=== PATIENT | female | born 2000 | race Caucasian/White ===

== ENCOUNTER 2021-03-07 05:10 | Emergency (ER) | payer BC ==
[2021-03-07 05:47] VITALS: O2SAT 100
[2021-03-07] MEDS ORDERED: TETRACAINE 0.5% STERI-UNIT SOL OP ONE (05:59)
[2021-03-07] MEDS ORDERED: Eye-Stream Solution ONE (06:00)
[2021-03-07] MEDS ORDERED: Fluor-I-Strip/Ful-Flo OP ONE (06:00)
[2021-03-07] MEDS ORDERED: Tobrex EYE DROPS 5 ML OP ONE (06:21)
[2021-03-07] MEDS ORDERED: NORCO 5/325 MG ONE ×2 (06:21→07:07)
[2021-03-07] MEDS ORDERED: Cyclogyl 1% EYE DROPS OP ONE (06:21)
[2021-03-07] MEDS: NORCO 5/325 MG PO ONE ×2 (06:25→07:11)
[2021-03-07] MEDS: Tobrex EYE DROPS 5 ML OP ONE (06:25)
--- NOTE | 2021-03-07 06:29 | ERPHSYRPT ---
- History of Present Illness Time Seen by Provider: 03/07/21 06:17 Source: patient Exam Limitations: no limitations Patient Subjective Stated Complaint: pt states she started having rt eye irritation and itching last night while she had her contacts in. started having pain in her eye immmed after taking contact out. Triage Nursing Assessment: pt alert and oriented, answers questions approp. pt ambulatory with steady gait noted, respirations nonlabored with lungs cta. redness to rt eye with mild swelling of eyelid noted. tearing noted from rt eye. no other discharge noted. Physician History: Patient is a 20-year-old female who presents with a complaint of right eye pain which started last evening when she removed her contact lens it is painful. She denies any foreign body sensation only pain and photophobia Timing/Duration: hour(s) (12) Location: right eye Severity: moderate Apparent Injury: no Associated Symptoms: pain, burning, sensitivity to light, redness, decreased vision, blurred vision Visual Assistive Devices: Contacts Chemical Exposure: No Trauma: No Welding Arc/Tanning Bed Exposure: No Allergies/Adverse Reactions: No Known Drug Allergies Allergy (Verified 03/07/21 05:48) Home Medications: Desogestrel-Ethinyl Estradiol [Apri 28 Day Tablet] 1 each PO DAILY 03/07/21 [History] Hx Tetanus, Diphtheria Vaccination/Date Given: Yes Hx Influenza Vaccination/Date Given: No Hx Pneumococcal Vaccination/Date Given: No Immunizations Up to Date: Yes Travel Risk - International Travel Have you traveled outside of the country in past 3 weeks: No - Coronavirus Screening Are you exhibiting any of the following symptoms?: No - Vaccine Status Have you recieved a Covid-19 vaccination: Yes Dye Weigher: [place] - Vaccination Dates Date of 2cond Vaccination (if applicable): na - Review of Systems Constitutional: No Fever, No Chills Eyes: Eye Pain, Eye Redness, Photophobia, Tearing Ears, Nose, & Throat: No Symptoms Respiratory: No Cough, No Dyspnea Cardiac: No Chest Pain, No Edema, No Syncope Abdominal/Gastrointestinal: No Abdominal Pain, No Nausea, No Vomiting, No Diarrhea Genitourinary Symptoms: No Dysuria Musculoskeletal: No Back Pain, No Neck Pain Skin: No Rash Neurological: No Dizziness, No Focal Weakness, No Sensory Changes Psychological: No Symptoms Endocrine: No Symptoms All Other Systems: Reviewed and Negative - Past Medical History Pertinent Past Medical History: Yes Neurological History: Migraines ENT History: No Pertinent History Cardiac History: No Pertinent History Respiratory History: No Pertinent History Endocrine Medical History: No Pertinent History Musculoskeletal History: No Pertinent History GI Medical History: No Pertinent History History: No Pertinent History Psycho-Social History: No Pertinent History Female Reproductive Disorders: No Pertinent History Other Medical History: E-COLI IN [place] AT AGE 8. - Past Surgical History Past Surgical History: No - Social History Smoking Status: Never smoker Exposure to second hand smoke: No Drug Use: none Patient Lives Alone: No - Female History Hx Last Menstrual Period: 2 weeks Hx Now: Yes - Nursing Vital Signs Nursing Vital Signs: Initial Vital Signs Temperature 97.9 F 03/07/21 05:33 Pulse Rate 85 03/07/21 05:33 Respiratory Rate 18 03/07/21 05:33 Blood Pressure 134/87 03/07/21 05:33 O2 Sat by Pulse Oximetry 100 03/07/21 05:33 Pain Scale Pain Intensity 6 - Physical Exam General Appearance: moderate distress Vision Acuity Degree Evaluation Phase: Corrected Vision Acuity Right Eye: 20/30 Vision Acuity Left Eye: 20/20 Eye Exam: right eye: conjunctival inflammation, corneal abrasion, eyelid inflammation, left eye: normal inspection Ears, Nose, Throat Exam: normal ENT inspection Neck Exam: normal inspection, non-tender Neurologic: alert, oriented x 3, cooperative Skin Exam: normal color, warm, dry Lymphatic: No adenopathy SpO2 Interpretation: normal SpO2: 100 O2 Delivery: Room Air Ordered Tests: Medication Summary Discontinued Medications Generic Name Dose Route Start Last Admin Trade Name Alisha PRN Reason Stop Dose Admin Hydrocodone Bitart/Acetaminophen 2 tab 03/07/21 06:15 [place] 5/325 Mg PO 03/07/21 06:16 SENT HOME W/ PATIENT ONE Cyclopentolate HCl 2 ml 03/07/21 06:13 Cyclogyl 1% Eye Drops OP 03/07/21 06:14 STAT ONE Eye Irrigation Solution Confirm 03/07/21 06:00 Eye-Stream Solution Administered 03/07/21 06:01 Dose 30 ml .ROUTE .STK-MED ONE Fluorescein Sodium Confirm 03/07/21 06:00 Ljggc-D-Zpyyj/Ful-Champ Administered 03/07/21 06:01 Dose 1 mg OP .STK-MED ONE Tetracaine HCl Confirm 03/07/21 05:59 Tetracaine 0.5% Steri-Unit Sheila Administered 03/07/21 06:00 Dose 4 ml OP .STK-MED ONE Tobramycin Sulfate 5 ml 03/07/21 06:16 Tobrex Eye Drops 5 Ml OP 03/07/21 06:17 STAT ONE - Progress Progress: improved - Departure Departure Disposition: Home Clinical Impression: Keratitis secondary to contact lens Condition: Stable Critical Care Time: No Referrals: LEX CAR [Primary Care Provider] - Instructions: Corneal Ulcer (DC) Prescriptions: Oxycodone HCl/Acetaminophen [Percocet 5-325 mg Tablet] 1 each PO Q6H 2 Days #8 tablet MDD 4
[2021-03-07] MEDS: Cyclogyl 1% EYE DROPS OP ONE (06:39)
[2021-03-07 07:02] VITALS: BP 127/91; PULSE 61
[2021-03-08] MEDS ORDERED: Eye-Stream Solution OP ONE (09:11)
== END 2021-03-07 07:21 | disposition home or self-care (01) ==
LOC: ED 05:10
DX: H16.9 Unspecified keratitis (principal)
CPT/HCPCS: 99283; A9270-GY

== ENCOUNTER 2024-04-09 23:15 | Observation (INO) | payer BC ==
[2024-04-09 23:41] VITALS: TEMP 98.1; O2SAT 98
[2024-04-09 23:50] LABS: Amphetamine,Urine NEGATIVE (NEGATIVE); Barbiturate,Urine NEGATIVE (NEGATIVE); Benzodiazepine,Urine NEGATIVE (NEGATIVE); Cocaine,Urine NEGATIVE (NEGATIVE); Methadone,Urine NEGATIVE (NEGATIVE); Opiate,Urine NEGATIVE (NEGATIVE); PCP,Urine NEGATIVE (NEGATIVE); THC,Urine NEGATIVE (NEGATIVE)
[2024-04-09 23:54] LABS: Appearance Clear (Clear); Bilirubin Negative (Negative); Blood Negative (Negative); Epithelial Cells Few /HPF (None Seen); Glucose, Urine Negative (Negative); Hyaline Casts NONE SEEN /LPF (0-2); Ketones Negative (Negative); Leukocyte Esterase Negative (Negative); Nitrite Negative (Negative); Ph 5.5 (4.6-8.0); Protein,Urine Dip 30 (Negative); RBC 0-2 /HPF (0-5); Specific Gravity >=1.030 (1.005-1.030)
[2024-04-09 23:58] LABS: ADD URINE CULTURE? YES (NO); Bacteria Moderate /HPF (None Seen)
[2024-04-10 00:14] VITALS: PULSE 92; RESP 16
[2024-04-10 00:15] LABS: Absolute Neutrophil Ct (ANC) 8.34 x10^3/uL (1.4-6.9); BASOPHIL % 0.2 % (0.0-0.4); Basophil (Absolute #) 0.02 x10^3/uL (0-0.4); Eosinophil % 0.5 % (0.00-5.0); Eosinophil (Absolute #) 0.05 x10^3/uL (0-0.5); Hematocrit 34.3 % (35-47); IMMATURE GRAN # 0.06 x10^3u/L (0.00-0.03); IMMATURE GRAN % 0.6 % (0.00-0.4); Lymphocyte (Absolute #) 1.69 x10^3/uL (1.0-4.6); Lymphocytes % 15.5 % (24.0-44.0); Mean Cell Volume 86.2 fL (78-100); Mean Corpuscular Hemoglobin 27.6 pg (26-32); Mean Corpuscular Hgb Concent. 32.1 g/dL (32-36); Mean Platelet Volume 9.6 fL (7.5-11.0); Monocyte (Absolute #) 0.74 x10^3/uL (0.0-1.3); Monocytes % 6.8 % (0.0-12.0); Neutrophil % 76.4 % (36.0-66.0); Platelet Count 180 x10^3/uL (150-450); Red Blood Count 3.98 x10^6/uL (4.1-5.4); Red Cell Distribution Width 14.1 % (11.5-14.0); White Blood Count 10.9 x10^3/uL (4.0-10.5)
[2024-04-10] MEDS ORDERED: TYLENOL EXTRA STRENGTH 500 MG ONE (00:15)
[2024-04-10] MEDS: TYLENOL EXTRA STRENGTH 500 MG PO PRN (00:16)
[2024-04-10 00:23] LABS: Creatinine, Urine Random 222.4 mg/dl; Protein Creatinine Ratio, Ran. 0.1 mg/mg (0.0-0.15)
[2024-04-10 00:32] LABS: ALBUMIN 3.1 g/dL (3.5-5.0); ANION GAP 9.9 MEQ/L (5-15); BILIRUBIN,TOTAL 0.4 mg/dL (0.2-1.3); Calcium 9.1 mg/dL (8.4-10.2); Creatinine 1 0.63 mg/dL (0.52-1.04); EST GLOMERULAR FILTRATION RATE 128.6 ML/MIN; Potassium 3.9 mmol/L (3.5-5.1); Total Protein 6.3 g/dL (6.3-8.2); Uric Acid 4.8 mg/dL (2.6-6.0)
[2024-04-10 00:46] VITALS: BP 130/81
== END 2024-04-10 00:56 | disposition home or self-care (01) ==
LOC: OB 23:15
PROVIDERS: ADMIT Family Medicine; ATTEND Family Medicine
DX: Z34.03 Encounter for supervision of normal first pregnancy, third trimester (principal); Z3A.37 37 weeks gestation of pregnancy
CPT/HCPCS: 36415; 80053; 80307; 81001; 82570; 84156; 84550; 85025; 87086; G0378; G0379; A9270-GY

== ENCOUNTER 2024-04-25 08:30 | Inpatient (IN) | payer BC ==
[2024-04-25] MEDS ORDERED: Nubain 10 MG/ML IV PRN (18:37)
[2024-04-25] MEDS ORDERED: STADOL 2 MG IV PRN (18:37)
[2024-04-25 18:46] LABS: Absolute Neutrophil Ct (ANC) 7.71 x10^3/uL (1.4-6.9); BASOPHIL % 0.2 % (0.0-0.4); Basophil (Absolute #) 0.02 x10^3/uL (0-0.4); Eosinophil % 0.2 % (0.00-5.0); Eosinophil (Absolute #) 0.02 x10^3/uL (0-0.5); Hemoglobin 11.4 g/dL (12.0-16.0); IMMATURE GRAN # 0.02 x10^3u/L (0.00-0.03); IMMATURE GRAN % 0.2 % (0.00-0.4); Lymphocyte (Absolute #) 1.43 x10^3/uL (1.0-4.6); Lymphocytes % 14.5 % (24.0-44.0); Mean Cell Volume 84.8 fL (78-100); Mean Corpuscular Hemoglobin 28.4 pg (26-32); Mean Corpuscular Hgb Concent. 33.5 g/dL (32-36); Mean Platelet Volume 11.2 fL (7.5-11.0); Monocyte (Absolute #) 0.64 x10^3/uL (0.0-1.3); Monocytes % 6.5 % (0.0-12.0); Neutrophil % 78.4 % (36.0-66.0); Platelet Count 225 x10^3/uL (150-450); Red Blood Count 4.01 x10^6/uL (4.1-5.4); Red Cell Distribution Width 15.5 % (11.5-14.0); White Blood Count 9.8 x10^3/uL (4.0-10.5)
[2024-04-25] MEDS: CYTOTEC PO SCH (18:47)
[2024-04-25 19:03] LABS: Amphetamine,Urine NEGATIVE (NEGATIVE); Barbiturate,Urine NEGATIVE (NEGATIVE); Benzodiazepine,Urine NEGATIVE (NEGATIVE); Cocaine,Urine NEGATIVE (NEGATIVE); Methadone,Urine NEGATIVE (NEGATIVE); Opiate,Urine NEGATIVE (NEGATIVE); PCP,Urine NEGATIVE (NEGATIVE); THC,Urine NEGATIVE (NEGATIVE)
[2024-04-25 19:22] LABS: ABO TYPING A; Antibody Screen NEGATIVE (NEGATIVE); RH TYPING POSITIVE
[2024-04-26] MEDS ORDERED: Ephedrine Sulfate 50 MG/ML IV PRN (08:16)
[2024-04-26] MEDS: Lactated Ringers 1,000 ML IV SCH (09:15)
[2024-04-26] MEDS: PITOCIN 30 UNITS/ LR 500 ML 30 UNITS/500 ML PLAST..BAG IV SCH (09:15)
[2024-04-26] MEDS: CYTOTEC PO SCH (17:59)
[2024-04-27] MEDS: Zofran 4 MG/2 ML VIAL IV PRN (09:29)
[2024-04-27] MEDS: FENTANYL 2 MCG-BUPIV 0.125%-NS 250 ML Epidur 250 ML EPIDURAL SCH (10:30)
[2024-04-27 14:01] LABS: ABO TYPING A; Antibody Screen NEGATIVE (NEGATIVE); RH TYPING POSITIVE
[2024-04-27] MEDS: Lactated Ringers 1,000 ML IV ONE (18:55)
[2024-04-27] MEDS: Dextrose 5%-Lr IV Solution 1000 ML 1,000 ML IV SCH (20:24)
[2024-04-27] MEDS ORDERED: OMNIPEN 2 GM ONE (22:58)
[2024-04-27] MEDS ORDERED: Sodium Chloride 100ML MINI-BAG PLUS 100 ML IV ONE (22:59)
[2024-04-27] MEDS: OMNIPEN 2 GM*** 2 G in Sodium Chloride 100ML MINI-BAG PLUS 100 ML IV SCH (23:02)
[2024-04-27] MEDS: TYLENOL EXTRA STRENGTH 500 MG PO PRN (23:02)
[2024-04-28] MEDS: XYLOCAINE 1% HCL 20 ML MDV IJ PRN (01:25)
[2024-04-28] MEDS: PITOCIN 30 UNITS/ LR 500 ML 30 UNITS/500 ML PLAST..BAG IV SCH (01:25)
[2024-04-28] MEDS ORDERED: LANSINOH 40 GM ONE (03:50)
[2024-04-28] MEDS ORDERED: Dermoplast Spray ONE (03:50)
[2024-04-28] MEDS ORDERED: TUCKS TP ONE (03:50)
[2024-04-28] MEDS: TUCKS TP PRN (03:54)
[2024-04-28] MEDS: Dermoplast Spray TP PRN (03:55)
[2024-04-28] MEDS: LANSINOH 40 GM TOP PRN (03:55)
[2024-04-28] MEDS: MOTRIN 400 MG PO PRN (03:57)
[2024-04-28] MEDS: SYNTHROID 25 MCG PO SCH (07:31)
[2024-04-28] MEDS: FERREX 150 PO SCH (12:02)
[2024-04-28] MEDS: Docusate Sodium 100 MG PO SCH (12:03)
[2024-04-28] MEDS: NORCO 5/325 MG PO PRN (13:35)
[2024-04-28 13:50] LABS: Absolute Neutrophil Ct (ANC) 11.26 x10^3/uL (1.56-6.13); BASOPHIL % 0.1 % (0.1-1.2); Basophil (Absolute #) 0.02 x10^3/uL (0.01-0.08); Eosinophil % 0.1 % (0.7-5.8); Eosinophil (Absolute #) 0.01 x10^3/uL (0.04-0.36); Hematocrit 32.9 % (34.1-44.9); Hemoglobin 10.8 g/dL (11.2-15.7); IMMATURE GRAN # 0.05 x10^3u/L (0.001-0.031); IMMATURE GRAN % 0.4 % (0.001-0.429); Lymphocytes % 13.4 % (19.3-51.7); Mean Cell Volume 85.7 fL (79.4-94.8); Mean Corpuscular Hemoglobin 28.1 pg (25.6-32.2); Mean Corpuscular Hgb Concent. 32.8 g/dL (32.2-35.5); Mean Platelet Volume 10.7 fL (9.4-12.3); Monocytes % 6.4 % (4.7-12.5); Neutrophil % 79.6 % (34.0-71.1); Platelet Count 218 x10^3/uL (182-369); Red Blood Count 3.84 x10^6/uL (3.93-5.22); Red Cell Distribution Width 15.7 % (11.7-14.4); White Blood Count 14.1 x10^3/uL (3.98-10.04)
[2024-04-28] MEDS: Compazine 10 MG/2 ML IV PRN (15:00)
--- NOTE | 2024-04-29 12:28 | PCM.DS ---
Discharge Summary Date of Admission: 04/27/24 08:30 Admitting Physician: BRYAN DA SILVA Consults: Consults on Case 04/29/24 10:42 Navigation ONCE Primary Care Provider: BRYAN DA SILVA Allergies Allergies No Known Drug Allergies Allergy (Verified 03/07/21 05:48) Hospital Summary - Hospital Course Hospital Course: patient had uncomplicated vaginal delivery at 40 weeks after prolonged induction, second degree perineal laceration repaired at delivery. mild lochia, well and tolerating po. no problems or concerns - Vitals & Intake/Output Vital Signs: Vital Signs Temperature 97.5 F 04/29/24 09:00 Pulse Rate 79 04/29/24 09:00 Respiratory Rate 14 04/29/24 09:00 Blood Pressure 145/96 04/29/24 09:00 O2 Sat by Pulse Oximetry 99 04/29/24 09:00 Intake & Output: Intake & Output 04/27/24 04/28/24 04/29/24 04/30/24 11:59 11:59 11:59 11:59 Intake Total 2322 Output Total 1400 1825 Balance -1400 497 - Lab Result Diagrams: 04/28/24 13:30 Lab Results-Last 24 Hrs: Lab Results-Last 24 Hours 04/28/24 Range/Units 13:30 WBC 14.1 H (3.98-10.04) x10^3/uL RBC 3.84 L (3.93-5.22) x10^6/uL Hgb 10.8 L (11.2-15.7) g/dL Hct 32.9 L (34.1-44.9) % MCV 85.7 (79.4-94.8) fL MCH 28.1 (25.6-32.2) pg MCHC 32.8 (32.2-35.5) g/dL RDW 15.7 H (11.7-14.4) % Plt Count 218 (182-369) x10^3/uL MPV 10.7 (9.4-12.3) fL Gran % 79.6 H (34.0-71.1) % Immature Gran % (Auto) 0.4 (0.001-0.429) % Nucleat RBC Rel Count 0.0 (0.00-0.2) % Eos # (Auto) 0.01 L (0.04-0.36) x10^3/uL Immature Gran # (Auto) 0.05 H (0.001-0.031) x10^3u/L Absolute Lymphs (auto) 1.90 (1.18-3.74) x10^3/uL Absolute Monos (auto) 0.90 H (0.24-0.86) x10^3/uL Absolute Nucleated RBC 0.00 (0.00-0.012) x10^3u/L Lymphocytes % 13.4 L (19.3-51.7) % Monocytes % 6.4 (4.7-12.5) % Eosinophils % 0.1 L (0.7-5.8) % Basophils % 0.1 (0.1-1.2) % Absolute Granulocytes 11.26 H (1.56-6.13) x10^3/uL Basophils # 0.02 (0.01-0.08) x10^3/uL Micro Results-Entire Visit: Microbiology 04/27/24 14:00 Urine Culture - Preliminary Catherized NO GROWTH TO DATE Discharge Exam General Appearance: no apparent distress, obese Neurologic Exam: alert, oriented x 3 Respiratory Exam: normal breath sounds, lungs clear, No respiratory distress Cardiovascular Exam: regular rate/rhythm, normal heart sounds Gastrointestinal/Abdomen Exam: soft, other (fundus firm), No tenderness, No mass Extremity Exam: normal inspection, normal range of motion Skin Exam: normal color, warm, dry Final Diagnosis/Problem List - Final Discharge Diagnosis/Problem (1) Normal vaginal delivery Current Visit: Yes Status: Acute Code(s): O80 - ENCOUNTER FOR FULL-TERM UNCOMPLICATED DELIVERY (2) (infant) Current Visit: Yes Status: Acute Code(s): Z78.9 - OTHER SPECIFIED HEALTH STATUS (3) Second degree perineal laceration during delivery Current Visit: Yes Status: Acute Code(s): O70.1 - SECOND DEGREE PERINEAL LACERATION DURING DELIVERY - Discharge Disposition: Home, Self-Care Condition: Stable Prescriptions: Continue Pnv 119/Iron Fum/Folic Acid [ 19 Tablet] 1 each PO DAILY Levothyroxine Sodium 25 Mcg [Synthroid 25 Mcg] 25 mcg PO DAILY Discontinued Ferrous Sulfate [Iron] 325 mg PO DAILY Aspirin [Adult Aspirin Regimen] 81 mg PO DAILY Follow up with: BRYAN DA SILVA MD [Primary Care Provider] - 6 weeks
[2024-04-29 15:42] VITALS: PULSE 88
[2024-04-29] MEDS ORDERED: Lactated Ringers 1,000 ML IV ONE (18:58)
[2024-04-29 23:43] VITALS: BP 136/91; RESP 18; TEMP 97.7; O2SAT 98
== END 2024-04-29 23:35 | disposition home or self-care (01) | DRG 807 ==
LOC: OB 08:30 → OBSVTOIN 04-27 08:30
PROVIDERS: ADMIT Family Medicine; ATTEND Family Medicine
PROC: 10E0XZZ Delivery of Products of Conception, External Approach (ICD-10-PCS; principal; 2024-04-28)
PROC: 0KQM0ZZ Repair Perineum Muscle, Open Approach (ICD-10-PCS; 2024-04-28)
DX: O70.1 Second degree perineal laceration during delivery (principal); Z37.0 Single live birth; Z3A.40 40 weeks gestation of pregnancy
CPT/HCPCS: 36415; 80307; 85025; 86850; 86900; 86901; 87086; G0378; G0379; J0290; J2405; J2590; A9270-GY